=== PATIENT | female | born 1950 | race Caucasian/White ===

== ENCOUNTER → 2021-02-09 | Outpatient (CLI) | payer MEDICARE | END | disposition home or self-care (01) | LOC: RAH 08:40 | PROVIDERS: ATTEND Obstetrics & Gynecology | DX: K82.8 Other specified diseases of gallbladder (principal); R32 Unspecified urinary incontinence; Z90.710 Acquired absence of both cervix and uterus | CPT/HCPCS: 76700; 76856 ==